=== PATIENT | female | born 1940 | race Caucasian/White ===

== ENCOUNTER → 2017-06-18 | Outpatient (CLI) | payer MEDICARE ==
--- NOTE | 2017-06-19 13:26 | MM ---
Reason for exam: screening (asymptomatic). Last mammogram was performed 1 year and 2 months ago. History: Patient is postmenopausal and has history of high-risk lesion on a previous biopsy at age 71. Family history of breast cancer in paternal aunt at age 70 and breast cancer in maternal aunt at age 60. Benign right breast needle localzation of the right breast, March 15, 2011. High risk right mammotome panel of the right breast, March 08, 2011. Benign stereotactic core biopsy of the right breast, June 10, 2002. Benign stereotactic core biopsy of the right breast, March 13, 2001. Physical Findings: A clinical breast exam by your physician is recommended on an annual basis and results should be correlated with mammographic findings. MG 3D Screening Mammo W/Cad Bilateral CC and MLO view(s) were taken. Prior study comparison: April 22, 2016, bilateral MG 3d screening mammo w/cad. March 16, 2015, bilateral MG screening mammo w CAD. There are scattered fibroglandular densities. Finding #1: There is stable architectural distortion in the outer quadrant, middle position of the right breast and benign dystrophic calcifications. Finding #2: There are typically benign round calcifications in both breasts. Previous mammotome biopsy in the right breast. There is no discrete abnormality. ASSESSMENT: Benign, BI-RAD 2 RECOMMENDATION: Routine screening mammogram of both breasts in 1 year.
== END | disposition home or self-care (01) ==
LOC: RADMAMWWP 07:13
PROVIDERS: ATTEND Internal Medicine
DX: Z12.31 Encounter for screening mammogram for malignant neoplasm of breast (principal)
CPT/HCPCS: 77063; 77067

== ENCOUNTER → 2018-07-15 | Outpatient (CLI) | payer MEDICARE ==
--- NOTE | 2018-07-17 09:37 | MM ---
Reason for exam: screening (asymptomatic). Last mammogram was performed 1 year and 1 month ago. History: Patient is postmenopausal and has history of high-risk lesion on a previous biopsy at age 71. Family history of breast cancer in paternal aunt at age 70 and breast cancer in maternal aunt at age 60. Benign right breast needle localzation of the right breast, March 15, 2011. High risk right mammotome panel of the right breast, March 08, 2011. Benign stereotactic core biopsy of the right breast, June 10, 2002. Benign stereotactic core biopsy of the right breast, March 13, 2001. Physical Findings: A clinical breast exam by your physician is recommended on an annual basis and results should be correlated with mammographic findings. MG 3D Screening Mammo W/Cad Bilateral CC and MLO view(s) were taken. Prior study comparison: June 18, 2017, bilateral MG 3d screening mammo w/cad. April 22, 2016, bilateral MG 3d screening mammo w/cad. There are scattered fibroglandular densities. Benign appearing bilateral calcifications. No suspicious abnormality. Right biopsy marker and post biopsy change noted. No significant changes when compared with prior studies. ASSESSMENT: Benign, BI-RAD 2 RECOMMENDATION: Routine screening mammogram of both breasts in 1 year.
== END | disposition home or self-care (01) ==
LOC: RADMAMWWP 14:19
PROVIDERS: ATTEND Internal Medicine
DX: Z12.31 Encounter for screening mammogram for malignant neoplasm of breast (principal)
CPT/HCPCS: 77063; 77067

== ENCOUNTER → 2019-02-08 | Outpatient (CLI) | payer MEDICARE ==
--- NOTE | 2019-02-08 13:21 | BD ---
EXAMINATION TYPE: Axial Bone Density DATE OF EXAM: 02/08/2019 COMPARISON: 2014 CLINICAL HISTORY: M 80.0 Height: Weight: FRAX RISK QUESTIONS: History of Fracture in Adulthood: YES Secondary Osteoporosis: RISK FACTORS HISTORY OF: Active: YES Postmenopausal woman: AGE 51 Take estrogen and/or progesterone medications: TOOK HRT FOR 2-3 YEARS NO LONGER Lost more than 2 inches in height since high school: YES MEDICATIONS: Additional Medications: METOPROLOL, LOSARTIN, ATORVASTIN Additional History: EXAM MEASUREMENTS: Bone mineral densitometry was performed using the 3se[employer] System. Bone mineral density as measured about the Lumbar spine is: ----- L1-L4(G/cm2): 1.350 T Score Values are as follows: ----- L2: 1.1 ----- L3: 2.8 ----- L4: 0.0 ----- L1-L4: 1.4 Bone mineral density has: INCREASED 5.2 % since study of: 2014 Bone mineral density about the R hip (g/cm2): 0.920 Bone mineral density about the L hip (g/cm2): 0.994 T Score values are as follows: -----R Neck: -0.9 -----L Neck: -0.3 -----R Total: -0.5 -----L Total: -0.1 Bone mineral density has: INCREASED 0.6 % since study of: 2014 IMPRESSION: Normal (Values between +1 and -1 indicate normal bone mass). Consider repeating this study in 5 year s or sooner if there is some new clinical indication. NOTE: T-SCORE=SD OF THE YOUNG ADULT MEAN.
== END | disposition home or self-care (01) ==
LOC: RADBDWWP 11:13
PROVIDERS: ATTEND Internal Medicine
DX: M81.0 Age-related osteoporosis without current pathological fracture (principal); M89.9 Disorder of bone, unspecified
CPT/HCPCS: 77080

== ENCOUNTER → 2020-05-10 | Outpatient (CLI) | payer MEDICARE ==
--- NOTE | 2020-05-15 11:32 | MM ---
Reason for exam: screening (asymptomatic). Last mammogram was performed 1 year and 10 months ago. History: Patient is postmenopausal and has history of high-risk lesion on a previous biopsy at age 71. Family history of breast cancer in paternal aunt at age 70 and breast cancer in maternal aunt at age 60. Benign right breast needle localzation of the right breast, March 15, 2011. High risk right mammotome panel of the right breast, March 08, 2011. Benign stereotactic core biopsy of the right breast, June 10, 2002. Benign stereotactic core biopsy of the right breast, March 13, 2001. Physical Findings: A clinical breast exam by your physician is recommended on an annual basis and results should be correlated with mammographic findings. MG 3D Screening Mammo W/Cad Bilateral CC and MLO view(s) were taken. Prior study comparison: July 15, 2018, bilateral MG 3d screening mammo w/cad. June 18, 2017, bilateral MG 3d screening mammo w/cad. There are scattered fibroglandular densities. Previous mammotome biopsy in the right breast. No significant changes when compared with prior studies. ASSESSMENT: Benign, BI-RAD 2 RECOMMENDATION: Routine screening mammogram of both breasts in 1 year.
== END | disposition home or self-care (01) ==
LOC: RADMAMWWP 16:11
PROVIDERS: ATTEND Internal Medicine
DX: Z12.31 Encounter for screening mammogram for malignant neoplasm of breast (principal)
CPT/HCPCS: 77063; 77067

== ENCOUNTER → 2021-06-11 | Outpatient (CLI) | payer MEDICARE ==
--- NOTE | 2021-06-12 10:48 | MM ---
Reason for exam: screening (asymptomatic). Last mammogram was performed 1 year and 1 month ago. History: Patient is postmenopausal and has history of high-risk lesion on a previous biopsy at age 71. Family history of breast cancer in paternal aunt at age 70 and breast cancer in maternal aunt at age 60. Benign right breast needle localzation of the right breast, March 15, 2011. High risk right mammotome panel of the right breast, March 08, 2011. Benign stereotactic core biopsy of the right breast, June 10, 2002. Benign stereotactic core biopsy of the right breast, March 13, 2001. Physical Findings: A clinical breast exam by your physician is recommended on an annual basis and results should be correlated with mammographic findings. MG 3D Screening Mammo W/Cad Bilateral CC and MLO view(s) were taken. Prior study comparison: May 10, 2020, bilateral MG 3d screening mammo w/cad. July 15, 2018, bilateral MG 3d screening mammo w/cad. There are scattered fibroglandular densities. Stable benign calcifications. No significant changes when compared with prior studies. ASSESSMENT: Benign, BI-RAD 2 RECOMMENDATION: Routine screening mammogram of both breasts in 1 year.
== END | disposition home or self-care (01) ==
LOC: RADMAMWWP 15:52
PROVIDERS: ATTEND Internal Medicine
DX: Z12.31 Encounter for screening mammogram for malignant neoplasm of breast (principal); Z78.0 Asymptomatic menopausal state; Z80.3 Family history of malignant neoplasm of breast
CPT/HCPCS: 77063; 77067

== ENCOUNTER → 2022-06-12 | Outpatient (CLI) | payer MEDICARE ==
--- NOTE | 2022-06-12 13:43 | MM ---
Reason for Exam: Screening (asymptomatic). Last mammogram was performed 1 year(s) and 1 month(s) ago. Patient History: Menarche at age 11. First Full-Term at age 20. Left ovary removed at age 33. Right ovary removed at age 33. Hysterectomy at age 33. Postmenopausal. Patient used Estrogen and Progesterone for 5 years. 03/15/2011, Benign Excisional Biopsy on the right side. 03/08/2011, High risk Core Biopsy on the right side. 06/10/2002, Benign Stereotactic Core Biopsy on the right side. 03/13/2001, Benign Stereotactic Core Biopsy on the right side. Paternal aunt had breast cancer, age 70. Maternal aunt had breast cancer, age 60. Risk Values: Arcelia 5 year model risk: 2.0%. NCI Lifetime model risk: 2.5%. Prior Study Comparison: 07/15/2018 Bilateral Screening Mammogram, [facility]. 05/10/2020 Bilateral Screening Mammogram, [facility]. 06/11/2021 Bilateral Screening Mammogram, [facility]. Tissue Density: The breast tissue is heterogeneously dense. This may lower the sensitivity of mammography. Findings: Analyzed By CAD. There is no suspicious group of microcalcifications or new suspicious mass in either breast. Overall Assessment: Negative, BI-RAD 1 Management: Screening Mammogram of both breasts in 1 year. A clinical breast exam by your physician is recommended on an annual basis and results should be correlated with mammographic findings. [facility] will attempt to contact patient to return for supplemental views and ultrasound if indicated. Electronically signed and approved by: Anshu Wadsworth DO
== END | disposition home or self-care (01) ==
LOC: RADMAMWWP 13:18
PROVIDERS: ATTEND Internal Medicine
DX: Z12.31 Encounter for screening mammogram for malignant neoplasm of breast (principal); Z78.0 Asymptomatic menopausal state; Z80.3 Family history of malignant neoplasm of breast; Z90.721 Acquired absence of ovaries, unilateral
CPT/HCPCS: 77063; 77067

== ENCOUNTER 2022-10-04 05:25 | Observation (INO) | payer MEDICARE ==
[2022-10-04] MEDS ORDERED: SODIUM CHLORIDE 0.9% 500 ML 500 ML IV STA (05:28)
[2022-10-04 06:00] LABS: Basophils # (A) 0.1 k/uL (0-0.2); Basophils % (A) 1 %; Eosinophils # (A) 0.4 k/uL (0-0.7); Eosinophils % (A) 5 %; HCT 39.5 % (34.0-46.0); HGB 13.4 gm/dL (11.4-16.0); Lymphocytes # (A) 1.9 k/uL (1.0-4.8); Lymphocytes % (A) 28 %; MCH 31.1 pg (25.0-35.0); MCHC 33.9 g/dL (31.0-37.0); MCV 91.7 fL (80.0-100.0); Mean Platelet Volume 7.6; Monocytes # (A) 0.5 k/uL (0-1.0); Monocytes % (A) 8 %; Neutrophils # (A) 3.9 k/uL (1.3-7.7); Neutrophils % (A) 56 %; Platelet Count 247 k/uL (150-450); RBC 4.31 m/uL (3.80-5.40); RDW 12.7 % (11.5-15.5); WBC 6.9 k/uL (3.8-10.6)
--- NOTE | 2022-10-04 06:06 | XR ---
EXAMINATION TYPE: XR chest 2V DATE OF EXAM: 10/04/2022 COMPARISON: NONE HISTORY: Dysrhythmia. TECHNIQUE: Frontal and lateral views of the chest are obtained. FINDINGS: Eventration of the right hemidiaphragm. There is no focal air space opacity, pleural effusi on, or pneumothorax seen. The cardiac silhouette size is upper limits of normal with atherosclerotic thoracic aorta. The osseous structures are demineralized. IMPRESSION: No acute cardiopulmonary process.
[2022-10-04 06:10] LABS: INR 0.9 (<1.2); Partial Thromboplastin Time 22.6 sec (22.0-30.0)
--- NOTE | 2022-10-04 06:10 | ED ---
General Adult HPI - General Chief complaint: Arrhythmia/Palpitations Stated complaint: TACHYCARDIA Time Seen by Provider: 10/04/22 05:28 Source: patient, EMS, RN notes reviewed, old records reviewed Mode of arrival: EMS Limitations: no limitations - History of Present Illness Initial comments: 82-year-old female presents for evaluation of palpitations and chest pain. Patient developed a left lateral chest pain which woke her from sleep. This was associated with palpitations and rapid heartbeat. She has no prior history of COPD, no history of arrhythmia. She states that intermittently over the past several weeks she's had palpitations and racing heart. Paramedics had found the patient be in A. fib with a rapid ventricular response. They did not provide us with a printed rhythm strip. No current chest pain, no vomiting, no fever, no cough - Related Data Previous Rx's Medication Instructions Recorded predniSONE 50 mg PO DAILY #5 tab 02/09/16 traMADol HCl [Ultram] 50 mg PO Q4H PRN #20 tab 02/09/16 Allergies Allergy/AdvReac Type Severity Reaction Status Date / Time acetaminophen [From [facility]] Allergy Nausea & Verified 10/04/22 05:36 Vomiting hydrocodone [From [facility]] Allergy Nausea & Verified 10/04/22 05:36 Vomiting neomycin Allergy Rash/Hives Verified 10/04/22 05:44 Review of Systems ROS Statement: Those systems with pertinent positive or pertinent negative responses have been documented in the HPI. ROS Other: All systems not noted in ROS Statement are negative. Past Medical History Past Medical History: Hypertension Additional Past Medical History / Comment(s): back pain History of Any Multi-Drug Resistant Organisms: None Reported Past Surgical History: Hysterectomy Past Psychological History: Anxiety Smoking Status: Never smoker Past Alcohol Use History: None Reported Past Drug Use History: None Reported General Exam Limitations: no limitations General appearance: alert, in no apparent distress Head exam: Present: atraumatic, normocephalic Eye exam: Present: normal appearance, PERRL ENT exam: Present: normal exam Neck exam: Present: normal inspection. Absent: tenderness, meningismus Respiratory exam: Present: normal lung sounds bilaterally. Absent: respiratory distress, wheezes Cardiovascular Exam: Present: regular rate, normal rhythm GI/Abdominal exam: Present: soft. Absent: distended, tenderness, guarding Extremities exam: Present: normal inspection, normal capillary refill Neurological exam: Present: alert, oriented X3, CN II-XII intact. Absent: motor sensory deficit Psychiatric exam: Present: anxious Skin exam: Present: warm, dry, intact Course Vital Signs 10/04/22 05:27 Pulse Rate 88 Respiratory 18 Rate Blood Pressure 185/77 O2 Sat by Pulse 100 Oximetry - Reevaluation(s) Reevaluation #1: 10/04/22 06:44 Patient reevaluated, resting comfortably, sinus rhythm without any complaints, no chest pain. Medical Decision Making - Medical Decision Making Was pt. sent in by a medical professional or institution (, PA, TILT WALL SUPERVISOR, urgent care, hospital, or shelter...) When possible be specific @ -No Did you speak to anyone other than the patient for history (EMS, parent, family, police, friend...)? What history was obtained from this source @ -No Did you review nursing and triage notes (agree or disagree)? Why? @ -I reviewed and agree with nursing and triage notes Were old charts reviewed (outside hosp., previous admission, EMS record, old EKG, old radiological studies, urgent care reports/EKG's, shelter records)? Report findings @ -No old charts were reviewed Differential Diagnosis (chest pain, altered mental status, abdominal pain women, abdominal pain men, vaginal bleeding, weakness, fever, dyspnea, syncope, headache, dizziness, GI bleed, back pain, seizure, CVA, palpatations, mental health, musculoskeletal)? @ Differential Palpitations Ventricular arrhythmias, atrial arrhythmias, myocardial infarction, anemia, thyrotoxicosis, electrolyte imbalance, hypokalemia, pulmonary embolism, pulmonary disease, drugs, alcohol, anxiety, stress.... This is not meant to be an all-inclusive list. EKG interpreted by me (3pts min.). @ -EKG: Sinus rhythm with left bundle branch block, rate of 83, WA interval 182, QRS duration 144, QTC 429, no prior EKG for comparison X-rays interpreted by me (1pt min.). @ Negative for acute cardiopulmonary findings CT interpreted by me (1pt min.). @ -None done U/S interpreted by me (1pt. min.). @ -None done What testing was considered but not performed or refused? (CT, X-rays, U/S, labs)? Why? @ -None What meds were considered but not given or refused? Why? @ -None Did you discuss the management of the patient with other professionals (professionals i.e. , PA, TILT WALL SUPERVISOR, lab, RT, psych nurse, social director, marketing manager, teacher, human resource officer, watch case polisher)? Give summary @ -Dr. Iraheta Was smoking cessation discussed for >3mins.? @ -No Was critical care preformed (if so, how long)? @ -No Were there social determinants of health that impacted care today? How? (Homelessness, low income, unemployed, alcoholism, drug addiction, transportation, low edu. Level, literacy, decrease access to med. care, fci, rehab)? @ -No Was there de-escalation of care discussed even if they declined (Discuss DNR or withdrawal of care, Hospice)? DNR status @ -No What co-morbidities impacted this encounter? (DM, HTN, Smoking, COPD, CAD, Cancer, CVA, ARF, Chemo, Hep., AIDS, mental health diagnosis, sleep apnea, morbid obesity)? @ -Hypertension Was patient admitted / discharged? Hospital course, mention meds given and route, prescriptions, significant lab abnormalities, going to OR and other pertinent info. @ -82-year-old female with palpitations and an episode of chest pain. Dary espitia had reported a rhythm on the monitor that was suggestive of A. fib with RVR but did not provide this documentation for my review. She is in sinus rhythm with a left bundle branch block, no old EKG for comparison. No chest pain at the time my evaluation. Her x-ray is unremarkable. She has normal CBC, normal CMP, negative initial troponin. She will benefit from an observation period on telemetry and serial cardiac enzymes as well as cardiology consultation. Undiagnosed new problem with uncertain prognosis? @ -No Drug Therapy requiring intensive monitoring for toxicity (Heparin, Nitro, Insulin, Cardizem)? @ -No Were any procedures done? @ -No Diagnosis/symptom? @ -Chest pain, palpitation Acute, or Chronic, or Acute on Chronic? @ -Acute Uncomplicated (without systemic symptoms) or Complicated (systemic symptoms)? @ -default Side effects of treatment? @ -No Exacerbation, Progression, or Severe Exacerbation? @ -No Poses a threat to life or bodily function? How? (Chest pain, USA, GA, pneumonia, PE, COPD, DKA, ARF, appy, cholecystitis, CVA, Diverticulitis, Homicidal, Suicidal, threat to staff... and all critical care pts) @ -Yes, chest pain, possible arrhythmia - Lab Data Result diagrams: 10/04/22 05:45 10/04/22 05:45 Lab Results 10/04/22 10/04/22 10/04/22 Range/Units 05:45 05:45 05:45 WBC 6.9 (3.8-10.6) k/uL RBC 4.31 (3.80-5.40) m/uL Hgb 13.4 (11.4-16.0) gm/dL Hct 39.5 (34.0-46.0) % MCV 91.7 (80.0-100.0) fL MCH 31.1 (25.0-35.0) pg MCHC 33.9 (31.0-37.0) g/dL RDW 12.7 (11.5-15.5) % Plt Count 247 (150-450) k/uL MPV 7.6 Neutrophils % 56 % Lymphocytes % 28 % Monocytes % 8 % Eosinophils % 5 % Basophils % 1 % Neutrophils # 3.9 (1.3-7.7) k/uL Lymphocytes # 1.9 (1.0-4.8) k/uL Monocytes # 0.5 (0-1.0) k/uL Eosinophils # 0.4 (0-0.7) k/uL Basophils # 0.1 (0-0.2) k/uL PT 10.0 (9.0-12.0) sec INR 0.9 (<1.2) APTT 22.6 (22.0-30.0) sec Sodium 139 (137-145) mmol/L Potassium 3.3 L (3.5-5.1) mmol/L Chloride 105 (98-107) mmol/L Carbon Dioxide 25 (22-30) mmol/L Anion Gap 9 mmol/L BUN 26 H (7-17) mg/dL Creatinine 0.96 (0.52-1.04) mg/dL Est GFR (CKD-EPI)AfAm 63 (>60 ml/min/1.73 sqM) Est GFR (CKD-EPI)NonAf 55 (>60 ml/min/1.73 sqM) Glucose 115 H (74-99) mg/dL Calcium 8.8 (8.4-10.2) mg/dL Magnesium 1.9 (1.6-2.3) mg/dL Total Bilirubin 0.4 (0.2-1.3) mg/dL AST 25 (14-36) U/L ALT 21 (4-34) U/L Alkaline Phosphatase 49 (38-126) U/L Troponin I (0.000-0.034) ng/mL Total Protein 6.6 (6.3-8.2) g/dL Albumin 3.9 (3.5-5.0) g/dL 10/04/22 Range/Units 05:45 WBC (3.8-10.6) k/uL RBC (3.80-5.40) m/uL Hgb (11.4-16.0) gm/dL Hct (34.0-46.0) % MCV (80.0-100.0) fL MCH (25.0-35.0) pg MCHC (31.0-37.0) g/dL RDW (11.5-15.5) % Plt Count (150-450) k/uL MPV Neutrophils % % Lymphocytes % % Monocytes % % Eosinophils % % Basophils % % Neutrophils # (1.3-7.7) k/uL Lymphocytes # (1.0-4.8) k/uL Monocytes # (0-1.0) k/uL Eosinophils # (0-0.7) k/uL Basophils # (0-0.2) k/uL PT (9.0-12.0) sec INR (<1.2) APTT (22.0-30.0) sec Sodium (137-145) mmol/L Potassium (3.5-5.1) mmol/L Chloride (98-107) mmol/L Carbon Dioxide (22-30) mmol/L Anion Gap mmol/L BUN (7-17) mg/dL Creatinine (0.52-1.04) mg/dL Est GFR (CKD-EPI)AfAm (>60 ml/min/1.73 sqM) Est GFR (CKD-EPI)NonAf (>60 ml/min/1.73 sqM) Glucose (74-99) mg/dL Calcium (8.4-10.2) mg/dL Magnesium (1.6-2.3) mg/dL Total Bilirubin (0.2-1.3) mg/dL AST (14-36) U/L ALT (4-34) U/L Alkaline Phosphatase (38-126) U/L Troponin I <0.012 (0.000-0.034) ng/mL Total Protein (6.3-8.2) g/dL Albumin (3.5-5.0) g/dL Disposition Clinical Impression: Palpitations, Chest pain Disposition: ADMITTED IP TO THIS HOSP Condition: Stable Is patient prescribed a controlled substance at d/c from ED?: No Referrals: Brenda Iraheta MD [Primary Care Provider] - 1-2 days Time of Disposition: 06:46
[2022-10-04 06:14] LABS: Albumin 3.9 g/dL (3.5-5.0); Calcium 8.8 mg/dL (8.4-10.2); Magnesium 1.9 mg/dL (1.6-2.3); Potassium 3.3 mmol/L (3.5-5.1); Total Bilirubin 0.4 mg/dL (0.2-1.3); Total Protein 6.6 g/dL (6.3-8.2)
[2022-10-04] MEDS ORDERED: POTASSIUM CHLORIDE ER 20 MEQ TAB.ER PO STA (06:16)
[2022-10-04] MEDS ORDERED: ASPIRIN 325 MG TAB PO STA (06:40)
[2022-10-04] MEDS ORDERED: NALOXONE 0.4 MG/ML 1 ML VIAL IV PRN (06:41)
[2022-10-04 07:05] LABS: Appearance,Urine Clear (Clear); Bacteria,Urine Moderate /hpf; Bilirubin,Urine Negative (Negative); Blood,Urine Negative (Negative); Color,Urine Light Yellow; Glucose,Urine (UA) Negative (Negative); Ketones,Urine Negative (Negative); Leukocyte Esterase,Urine Trace (Negative); Nitrite,Urine Negative (Negative); PH, Urine 6.5 (5.0-8.0); Protein,Urine Negative (Negative); RBC,Urine <1 /hpf (0-5); Specific Gravity,Urine 1.007 (1.001-1.035); Squamous Epithelial Cell,Urine 1 /hpf (0-4); Urobilinogen,Urine <2.0 mg/dL (<2.0); WBC,Urine 6 /hpf (0-5)
[2022-10-04] MEDS ORDERED: METOPROLOL TARTRATE 50 MG TAB PO SCH (09:00)
--- NOTE | 2022-10-04 09:47 | P.HPIM ---
History of Present Illness H&P Date: 10/04/22 Chief Complaint: Chest pain and palpitations This is a 82-year-old female patient who presented with concerns of intermittent chest pain and palpitations. Patient reports palpitations have been occurring over the past 2 months usually early in the morning. Patient states that chest pain was Started this morning but resolved on arrival to ER. Patient has past medical history of hypertension and anxiety. According to EMS records patient was found to be in A. fib with RVR but was unable to provide with printed rhythm strip. EKG not upon arrival showed sinus rhythm with left bundle branch block. Chest x-ray completed showing no acute cardiopulmonary process. TSH level 2.090. Troponins negative. Patient slightly hypokalemic with potassium level 3.3. At this time 2-D echo has been ordered repeat labs ordered cardiology service is consulted. UA showing trace amount leukocyte esterase. Patient denies any acute symptoms will order urine culture at this time. This time patient is resting comfortably bed complaints of slight shakiness. Denies chest pain or palpitations. Denies nausea vomiting or diarrhea. Denies any urinary burning or frequency Review of Systems Please refer to HPI otherwise unremarkable Past Medical History Past Medical History: Hypertension Additional Past Medical History / Comment(s): back pain History of Any Multi-Drug Resistant Organisms: None Reported Past Surgical History: Hysterectomy Past Psychological History: Anxiety Smoking Status: Never smoker Past Alcohol Use History: None Reported Past Drug Use History: None Reported Medications and Allergies Home Medications Medication Instructions Recorded Confirmed Type ALPRAZolam [Xanax] 0.25 mg PO BID PRN 10/04/22 10/04/22 History Atorvastatin [Lipitor] 20 mg PO HS 10/04/22 10/04/22 History Losartan Potassium [Cozaar] 100 mg PO HS 10/04/22 10/04/22 History Metoprolol/Hydrochlorothiazide 1 tab PO DAILY 10/04/22 10/04/22 History [Lopressor Hct 50-25 mg Tab] Omeprazole [PriLOSEC] 20 mg PO DAILY 10/04/22 10/04/22 History Allergies Allergy/AdvReac Type Severity Reaction Status Date / Time acetaminophen [From [facility]] Allergy Nausea & Verified 10/04/22 08:18 Vomiting hydrocodone [From [facility]] Allergy Nausea & Verified 10/04/22 08:18 Vomiting neomycin Allergy Rash/Hives Verified 10/04/22 08:18 Physical Exam Vitals: Vital Signs Temp Pulse Resp BP Pulse Ox 10/04/22 08:29 97.8 F 91 18 123/53 99 10/04/22 06:50 105 H 20 99 10/04/22 06:40 106 H 19 136/72 99 10/04/22 06:30 98 99 10/04/22 06:20 82 8 L 100 10/04/22 06:10 92 16 158/62 98 10/04/22 05:50 96 98 10/04/22 05:40 90 14 185/77 99 10/04/22 05:30 105 H 14 99 10/04/22 05:29 99 177/85 100 10/04/22 05:27 88 18 185/77 100 Intake and Output 10/03/22 10/04/22 10/04/22 22:59 06:59 14:59 Other: Weight 78.925 kg Head normocephalic Neck supple Lungs clear to auscultation bilaterally no wheezing or crackles Heart regular rate and rhythm S1-S2, no rub or gallop Abdomen is soft nontender nondistended positive bowel sounds no hepatosplenomegaly Extremities no edema Neuro alert and orientated to 3 Results CBC & Chem 7: 10/04/22 05:45 10/04/22 05:45 Labs: Abnormal Lab Results - Last 24 Hours (Table) 10/04/22 10/04/22 Range/Units 05:45 06:51 Potassium 3.3 L (3.5-5.1) mmol/L BUN 26 H (7-17) mg/dL Glucose 115 H (74-99) mg/dL Ur Leukocyte Esterase Trace H (Negative) Urine WBC 6 H (0-5) /hpf Urine Bacteria Moderate H (None) /hpf Assessment and Plan Assessment: 1. Chest pain with palpitations 2. Possible atrial fibrillation per paramedics in EMS. 3. History of essential hypertension 4. History of anxiety 5. Hypokalemia. Potassium replaced per protocol. Repeat lab order Cardiology services consulted Continue telemetry 2-D echo ordered Repeat labs ordered Carotid Doppler ordered Time with Patient: Greater than 30 (Greater than 60% of the total time spent in counseling and coordination of care)
[2022-10-04] MEDS: ALPRAZolam 0.25 MG TAB PO PRN ×2 (10:22→19:07)
[2022-10-04] MEDS: hydroCHLOROthiazide 25 MG TAB PO SCH (10:22)
[2022-10-04] MEDS: PANTOPRAZOLE 40 MG TABLET PO SCH (10:22)
[2022-10-04] MEDS ORDERED: ACETAMINOPHEN TAB 325 MG TAB PO PRN (11:31)
--- NOTE | 2022-10-04 14:25 | US ---
EXAMINATION TYPE: US carotid duplex BILAT DATE OF EXAM: 10/04/2022 COMPARISON: NONE CLINICAL INDICATION: Female, 82 years old with history of dizziness; Dizzy, no h/o dvt TECHNIQUE: Carotid duplex ultrasound examination. Indirect Doppler criteria was utilized. FINDINGS: EXAM MEASUREMENTS: RIGHT: Peak Systolic Velocity (PSV) cm/sec ----- Right CCA: 67.3 ----- Right ICA: 247.0 ----- Right ECA: 106.9 ICA/CCA ratio: 3.7 RIGHT: End Diastole cm/sec ----- Right CCA: 10.4 ----- Right ICA: 70.4 ----- Right ECA: 6.9 LEFT: Peak Systolic Velocity (PSV) cm/sec ----- Left CCA: 75.3 ----- Left ICA: 143.2 ----- Left ECA: 70.3 ICA/CCA ratio: 1.9 LEFT: End Diastole cm/sec ----- Left CCA: 16.8 ----- Left ICA: 42.3 ----- Left ECA: 12.7 VERTEBRALS (direction of flow): Right Vertebral: Antegrade Left Vertebral: Antegrade Rhythm: Normal CHECK WEIGHER NOTES: diving bilateral ICA's, right distal ICA had increased velocities, heterogeneous p laque at left bulb IMPRESSION: Suboptimal study. Abnormal velocities measurements bilaterally more prominent on the rig ht. Abnormal right-sided ratio. Hemodynamically significant stenosis greater than 50% cannot be exclu ded. Advise CTA of the neck follow-up to further evaluate. Criteria for Assigning % of Stenosis / Diameter reduction (Estimation based on the indirect measurements of the internal carotid artery velocities (ICA PSV). 1. Normal (no stenosis)=ICA PSV < 125 cm/s: ratio < 2.0: ICA EDV<40 cm/s. 2. Less than 50% stenosis=ICA PSV < 125 cm/s: ratio < 2.0: ICA EDV<40 cm/s. 3. 50 to 69% stenosis=ICA PSV of 125 to 230 cm/s: ration 2.0 ? 4.0: ICA EDV 40-100 cm/s. 4. Greater than 70% stenosis to near occlusion= ICA PSV > 230 cm/s: ratio > 4.0: ICA EDV > 100 cm/s. 5. Near occlusion= ICA PSV velocities may be low or undetectable: variable ratio and ICA EDV. 6. Total occlusion=unable to detect flow.
[2022-10-04] MEDS: IBUPROFEN 600 MG TAB PO PRN (19:09)
[2022-10-04] MEDS: ATORVASTATIN 20 MG TAB PO SCH (21:27)
[2022-10-04] MEDS: LOSARTAN 50 MG TAB PO SCH (21:27)
[2022-10-05] MEDS: ALPRAZolam 0.25 MG TAB PO PRN ×2 (04:19→20:12)
[2022-10-05] MEDS: IBUPROFEN 600 MG TAB PO PRN ×2 (04:19→20:12)
[2022-10-05] MEDS: hydroCHLOROthiazide 25 MG TAB PO SCH (08:29)
[2022-10-05] MEDS: PANTOPRAZOLE 40 MG TABLET PO SCH (08:30)
[2022-10-05] MEDS: METOPROLOL TARTRATE 50 MG TAB PO SCH ×2 (08:30→20:09)
[2022-10-05 10:08] LABS: Albumin 3.5 g/dL (3.8-4.9); Albumin/Globulin Ratio 1.75 (1.60-3.17); Anion Gap 9.1 mmol/L (10.00-18.00); BUN/Creat Ratio 20.63 Ratio (12.00-20.00); Blood Urea Nitrogen 16.5 mg/dL (9.0-27.0); Calcium 8.9 mg/dL (8.7-10.3); Carbon Dioxide 23.9 mmol/L (20.0-27.5); Non-African American GFR(CKD) 68.2 (60.0-200.0); Potassium 4.1 mmol/L (3.5-5.5); Total Bilirubin 0.5 mg/dL (0.30-1.20); Total Protein 5.5 g/dL (6.2-8.2)
[2022-10-05 10:22] LABS: Basophils # (A) 0.05 X 10*3/uL (0.00-0.10); Basophils % (A) 0.8 %; Eosinophils # (A) 0.36 X 10*3/uL (0.04-0.35); Eosinophils % (A) 5.7 %; HCT 37.9 % (37.2-46.3); HGB 12.5 g/dL (12.0-15.0); Immature Grans, Automated 0.5 %; Lymphocytes # (A) 1.86 X 10*3/uL (0.90-5.00); Lymphocytes % (A) 29.7 %; MCH 30.6 pg (27.0-32.0); MCV 92.7 fL (80.0-97.0); Mean Platelet Volume 10.2 fL (9.5-12.2); Monocytes % (A) 11.2 %; NRBC Per 100 WBC 0 /100 WBCS (0.0-0.0); Neutrophils # (A) 3.27 X 10*3/uL (1.80-7.70); Neutrophils % (A) 52.1 %; Platelet Count 238 X 10*3/uL (140-440); RBC 4.09 X 10*6/uL (4.10-5.20); RDW 12.9 % (11.5-14.5); WBC 6.27 X 10*3/uL (4.50-10.00)
--- NOTE | 2022-10-05 12:24 | P.PN ---
Subjective Progress Note Date: 10/05/22 Glenys Young, is a 82-year-old female patient who presented with concerns of intermittent chest pain and palpitations. Patient reports palpitations have been occurring over the past 2 months usually early in the morning. Patient states that chest pain was Started this morning but resolved on arrival to ER. Patient has past medical history of hypertension and anxiety. According to EMS records patient was found to be in A. fib with RVR but was unable to provide with printed rhythm strip. EKG not upon arrival showed sinus rhythm with left bundle branch block. Chest x-ray completed showing no acute cardiopulmonary process. TSH level 2.090. Troponins negative. Patient slightly hypokalemic with potassium level 3.3. At this time 2-D echo has been ordered repeat labs ordered cardiology service is consulted. UA showing trace amount leukocyte esterase. Patient denies any acute symptoms will order urine culture at this time. This time patient is resting comfortably bed complaints of slight shakiness. Denies chest pain or palpitations. Denies nausea vomiting or diarrhea. Denies any urinary burning or frequency On 10/05/2022 patient was seen and examined on the telemetry floor, she is alert and oriented 3 in no apparent distress, she is still having episodes of palpitation and chest discomfort, otherwise she denies any complaints there is no fever or chills no headache or dizziness, no shortness of breath no cough no nausea or vomiting no abdominal pain no diarrhea no blood in the stools no burning with urination no frequency or urgency and no hematuria. Patient had an echocardiogram, and she was seen by cardiology. However cardiology consult and echocardiogram results are not available to me yet. I will continue to follow closely. Objective - Vital Signs Vital signs: Vital Signs Temp 99 F 10/05/22 07:00 Pulse 92 10/05/22 07:00 Resp 16 10/05/22 07:00 BP 148/84 10/05/22 07:00 Pulse Ox 99 10/05/22 07:59 FiO2 Intake & Output 10/04/22 10/05/22 10/05/22 18:59 06:59 18:59 Intake Total 118 240 Balance 118 240 Weight 78.925 kg Intake: Oral 118 240 Other: Voiding Method Toilet Toilet Toilet # Voids 3 - Exam In general patient is alert and oriented x 3 in no distress HEENT head normocephalic and atraumatic Neck is supple no JVD no goiter no lymphadenopathy no carotid bruit Chest examination is clear to auscultation no crackles no wheezing Cardiac exam reveals regular heart sounds S1 and S2 no gallops no murmurs Abdomen is soft nontender no organomegaly with normal bowel sounds Extremity exam reveals no edema no cyanosis or clubbing Neurological examination reveals no gross focal deficits - Labs CBC & Chem 7: 10/05/22 06:19 10/05/22 06:19 Labs: Abnormal Lab Results - Last 24 Hours (Table) 10/05/22 10/05/22 Range/Units 06:19 06:19 RBC 4.09 L (4.10-5.20) X 10*6/uL Eosinophils # 0.36 H (0.04-0.35) X 10*3/uL Anion Gap 9.10 L (10.00-18.00) mmol/L BUN/Creatinine Ratio 20.63 H (12.00-20.00) Ratio Alkaline Phosphatase 38 L (41-126) U/L Total Protein 5.5 L (6.2-8.2) g/dL Albumin 3.5 L (3.8-4.9) g/dL Assessment and Plan Assessment: 1. Chest pain with palpitations 2. Possible atrial fibrillation per paramedics in EMS. 3. History of essential hypertension 4. History of anxiety 5. Hypokalemia. Potassium replaced per protocol. Repeat lab order Cardiology services consulted Continue telemetry 2-D echo ordered Repeat labs ordered Carotid Doppler ordered
--- NOTE | 2022-10-05 12:34 | P.CRDCN ---
History of Present Illness Consult date: 10/05/22 Consult reason: chest pain History of present illness: This is Rolando Busby NP, I'm dictating on behalf of Dr. Matthew's H&P and A&P The patient was interviewed and examined. HPI: Patient is a pleasant 82 old female presented to hospital with complaints of chest pain heart palpitations, and shortness of breath. Patient reports that she's been having periodic episodes of shortness of breath, weakness, heart fluttering, as well as dizziness. Patient states yesterday she had some chest pain 2, which is a prompted her to present to the emergency department. Emergency department notes report that EMS stated the patient had a episode of atrial fibrillation while on the way to the hospital, however no telemetry strips or EKG was completed to demonstrate this. In the emergency department the patient was found to be normal sinus rhythm with a left bundle branch block. Initial troponin was negative. Due to the significant is the patient's symptoms she was admitted for further evaluation. This morning patient reports that she's feeling okay. She is denying chest pain, shortness of breath, heart palpitations, weakness, and dizziness at this time. Patient did have an echocardiogram completed which is pending read. Patient is a past medical history significant for hypertension. ROS: [No fever, chills, or rigors] [no cough, phlegm, or expectoration] [no nausea, vomiting, or diarrhea] [no hematuria, dysuria] [no musculoskelatal complaints] [no strokes or seizures] [no skin lesions] EXAMINATION: GENERAL: Well-appearing, well-nourished and in no acute distress. NECK: Supple without JVD or thyromegaly. LUNGS: Breath sounds clear to auscultation bilaterally. Respiration equal and unlabored. No wheezes, rales or rhonchi. HEART: Regular rate and rhythm without murmurs, rubs or gallops. S1 and S2 heard. EXTREMITIES: Normal range of motion, no edema. No clubbing or cyanosis. Peripheral pulses intact and strong. REVIEW OF LABS, ECG & MEDICAL DATA: LABS: White count 6.2, hemoglobin 12.5, platelets 238, sodium 142, potassium 4.1, B1 16.5, creatinine 0.8, calcium 8.9, troponin less than 0.0123, TSH 2.0 EKG: Normal sinus rhythm with left bundle branch block IMAGING: Chest x-ray dated 10/04/2022 demonstrates no acute cardiopulmonary process. Carotid Doppler dated 10/04/2022 demonstrates suboptimal study, abn ormal velocities measurements bilaterally more prominent on the right, abnormal right-sided ratio, hemodynamically significant stenosis greater than 50% cannot be excluded, advised CTA of the neck follow-up to evaluate further. VITALS: Temp 99, pulse 92, respirations 16, blood pressure 148/84, O2 saturation 98% on room air IMPRESSION: 1. Possible paroxysmal atrial fibrillation, no EKG evidence yet 2. Hypertension, patient on hydrochlorothiazide and losartan PLAN: Increase metoprolol to 50 mg twice a day. Echocardiogram is pending read. Monitor patient overnight on telemetry. Further recommendations based on patient's clinical course. Thank you for the consult and allowing us to participate in the care of this patient. Past Medical History Past Medical History: Hypertension Additional Past Medical History / Comment(s): back pain History of Any Multi-Drug Resistant Organisms: None Reported Past Surgical History: Bowel Resection, Hysterectomy Past Anesthesia/Blood Transfusion Reactions: No Reported Reaction Past Psychological History: Anxiety Smoking Status: Never smoker Past Alcohol Use History: None Reported Past Drug Use History: None Reported Medications and Allergies Home Medications Medication Instructions Recorded Confirmed Type ALPRAZolam [Xanax] 0.25 mg PO BID PRN 10/04/22 10/04/22 History Atorvastatin [Lipitor] 20 mg PO HS 10/04/22 10/04/22 History Losartan Potassium [Cozaar] 100 mg PO HS 10/04/22 10/04/22 History Metoprolol/Hydrochlorothiazide 1 tab PO DAILY 10/04/22 10/04/22 History [Lopressor Hct 50-25 mg Tab] Omeprazole [PriLOSEC] 20 mg PO DAILY 10/04/22 10/04/22 History Allergies Allergy/AdvReac Type Severity Reaction Status Date / Time acetaminophen [From [place]] Allergy Nausea & Verified 10/04/22 08:18 Vomiting hydrocodone [From [place]] Allergy Nausea & Verified 10/04/22 08:18 Vomiting neomycin Allergy Rash/Hives Verified 10/04/22 08:18 Physical Exam Vitals: Vital Signs Temp Pulse Resp BP Pulse Ox 10/05/22 07:59 99 10/05/22 07:00 99 F 92 16 148/84 98 10/05/22 02:40 97.9 F 85 15 136/77 98 10/04/22 20:00 98 F 81 17 177/83 98 10/04/22 14:54 98.1 F 87 18 103/67 98 10/04/22 14:00 16 Intake and Output 10/04/22 10/05/22 10/05/22 22:59 06:59 14:59 Intake Total 118 240 Balance 118 240 Intake: Oral 118 240 Other: Voiding Method Toilet Toilet # Voids 3 Results 10/05/22 06:19 10/05/22 06:19 Cardiac Enzymes 10/04/22 10/05/22 Range/Units 11:43 06:19 AST 17 (13-35) U/L Troponin I <0.012 (0.000-0.034) ng/mL CBC 10/05/22 Range/Units 06:19 WBC 6.27 (4.50-10.00) X 10*3/uL RBC 4.09 L (4.10-5.20) X 10*6/uL Hgb 12.5 (12.0-15.0) g/dL Hct 37.9 (37.2-46.3) % Plt Count 238 (140-440) X 10*3/uL Comprehensive Metabolic Panel 10/05/22 Range/Units 06:19 Sodium 142 (135-145) mmol/L Potassium 4.1 (3.5-5.5) mmol/L Chloride 109 (96-109) mmol/L Carbon Dioxide 23.9 (20.0-27.5) mmol/L BUN 16.5 (9.0-27.0) mg/dL Creatinine 0.8 (0.6-1.5) mg/dL Glucose 100 (70-110) mg/dL Calcium 8.9 (8.7-10.3) mg/dL AST 17 (13-35) U/L ALT 16 (8-44) U/L Alkaline Phosphatase 38 L (41-126) U/L Total Protein 5.5 L (6.2-8.2) g/dL Albumin 3.5 L (3.8-4.9) g/dL Current Medications Generic Name Dose Route Start Last Admin Trade Name Freq PRN Reason Stop Dose Admin Acetaminophen 650 mg 10/04/22 11:31 Acetaminophen Tab 325 Mg Tab PO Q6HR PRN Fever and/ or Pain Alprazolam 0.25 mg 10/05/22 12:24 Alprazolam 0.25 Mg Tab PO QID PRN Anxiety Atorvastatin Calcium 20 mg 10/04/22 21:00 10/04/22 21:27 Atorvastatin 20 Mg Tab PO 20 mg HS ARTHUR Administration Hydrochlorothiazide 25 mg 10/04/22 09:00 10/05/22 08:29 Hydrochlorothiazide 25 Mg Tab PO Not Given DAILY ARTHUR Ibuprofen 600 mg 10/04/22 17:55 10/05/22 04:19 Ibuprofen 600 Mg Tab PO 600 mg Q6H PRN Administration Pain Losartan Potassium 100 mg 10/04/22 21:00 10/04/22 21:27 Losartan 50 Mg Tab PO 100 mg HS ARTHUR Administration Metoprolol Tartrate 50 mg 10/05/22 09:00 10/05/22 08:30 Metoprolol Tartrate 50 Mg Tab PO 50 mg BID ARTHUR Administration Naloxone HCl 0.2 mg 10/04/22 06:41 Naloxone 0.4 Mg/Ml 1 Ml Vial IV Q2M PRN Opioid Reversal Pantoprazole Sodium 40 mg 10/04/22 09:00 10/05/22 08:30 Pantoprazole 40 Mg Tablet PO 40 mg DAILY@0730 ARTHUR Administration Intake and Output 10/04/22 10/05/22 10/05/22 22:59 06:59 14:59 Intake Total 118 240 Balance 118 240 Intake: Oral 118 240 Other: Voiding Method Toilet Toilet # Voids 3 10/05/22 06:19 10/05/22 06:19
--- NOTE | 2022-10-05 17:43 | CA ---
Transthoracic Echo Report Name: Glenys Young Age: 82 Gender: F : 1940 Exam Date: 10/04/2022 14:23 Exam Location: [facility] Ht (in): 62 Wt (lb): 174 Ordering Physician: Brenda Iraheta MD Attending/Referring Phys: [employer] Ashley Delgado RDCS Procedure CPT: Indications: Chest Pain Cardiac Hx: Technical Quality: Good Contrast 1: Total Dose (mL): Contrast 2: Total Dose (mL): MEASUREMENTS (Male / Female) Normal Values 2D ECHO LV Diastolic Diameter PLAX 4.7 cm 4.2 - 5.9 / 3.9 - 5.3 cm LV Systolic Diameter PLAX 3.2 cm IVS Diastolic Thickness 1.0 cm 0.6 - 1.0 / 0.6 - 0.9 cm LVPW Diastolic Thickness 1.0 cm 0.6 - 1.0 / 0.6 - 0.9 cm LV Relative Wall Thickness 0.4 RV Internal Dim ED PLAX 3.4 cm LA Systolic Diameter LX 3.9 cm 3.0 - 4.0 / 2.7 - 3.8 cm LV Diastolic Volume MOD 4C 61.5 cm??? LV Systolic Volume MOD 4C 32.0 cm??? LV Ejection Fraction MOD 4C 48.0 % LV Diastolic Length 4C 7.2 cm LV Systolic Length 4C 6.2 cm LV Diastolic Volume MOD 2C 74.8 cm??? LV Systolic Volume MOD 2C 43.4 cm??? LV Ejection Fraction MOD 2C 41.9 % LV Diastolic Length 2C 8.2 cm LV Systolic Length 2C 6.5 cm LA Volume 48.7 cm??? 18 - 58 / 22 - 52 cm??? M-MODE Aortic Root Diameter MM 3.0 cm AV Cusp Separation MM 2.4 cm DOPPLER AV Peak Velocity 118.1 cm/s AV Peak Gradient 5.6 mmHg AI Peak Velocity 260.9 cm/s AI Peak Gradient 27.2 mmHg AI Pressure Half Time 1122.1 ms MV Area PHT 3.6 cm??? Mitral E Point Velocity 97.7 cm/s Mitral A Point Velocity 97.1 cm/s Mitral E to A Ratio 1.0 MV Deceleration Time 212.4 ms TR Peak Velocity 278.4 cm/s TR Peak Gradient 31.0 mmHg Right Ventricular Systolic Press 36.0 mmHg FINDINGS Left Ventricle Left ventricular ejection fraction is estimated at 50-55 %. Left ventricular cavity size normal. Mildly increased septal wall thickness. Mildly increased posterior wall thickness. Right Ventricle Mild right ventricular dilatation. Mild pulmonary hypertension. Right Atrium Normal right atrial size. Left Atrium Mildly increased left atrial diameter. Mitral Valve Structurally normal mitral valve. No evidence for mitral valve prolapse. No mitral stenosis. Mild mitral regurgitation. Aortic Valve Trileaflet aortic valve. No aortic stenosis. Mild aortic regurgitation. Tricuspid Valve Structurally normal tricuspid valve. Mild tricuspid regurgitation. Pulmonic Valve Pulmonic valve not well visualized. Pericardium Normal pericardium. No pericardial effusion. Aorta Normal size aortic root and proximal ascending aorta. CONCLUSIONS LVH with preserved systolic function Mildly enlarged right ventricle Previewed by: Dr. Don Matthew MD (Electronically Signed) Final Date: 05 Oct 2022 17:42
[2022-10-05] MEDS: LOSARTAN 50 MG TAB PO SCH (20:10)
[2022-10-05] MEDS: ATORVASTATIN 20 MG TAB PO SCH (20:10)
[2022-10-06] MEDS: ALPRAZolam 0.25 MG TAB PO PRN ×2 (02:39→09:41)
[2022-10-06] MEDS: IBUPROFEN 600 MG TAB PO PRN ×2 (02:39→09:41)
[2022-10-06 08:37] VITALS: PULSE 71; RESP 16; TEMP 97.9
[2022-10-06] MEDS ORDERED: LOSARTAN 50 MG TAB PO SCH ×2 (09:00→21:00)
[2022-10-06 09:38] VITALS: BP 140/80
[2022-10-06] MEDS: METOPROLOL TARTRATE 50 MG TAB PO SCH (09:39)
[2022-10-06] MEDS: hydroCHLOROthiazide 25 MG TAB PO SCH (09:39)
[2022-10-06] MEDS: PANTOPRAZOLE 40 MG TABLET PO SCH (09:39)
--- NOTE | 2022-10-06 10:06 | P.DS ---
Providers Date of admission: 10/04/22 06:41 Expected date of discharge: 10/06/22 Attending physician: Brenda Iraheta Consults: 10/04/22 06:41 Consult Physician Routine Consulting Provider: Barbara Yang Consult Reason/Comments: Chest pain, possible A. fib Do you want consulting provider notified?: Yes Primary care physician: Brenda Iraheta [facility] Course: Discharge diagnosis 1. Chest pain with palpitations 2. Possible atrial fibrillation per paramedics in EMS. 3. History of essential hypertension 4. History of anxiety 5. Hypokalemia. Potassium replaced per protocol. Repeat lab order Hospital course Glenys Young, is a 82-year-old female patient who presented with concerns of intermittent chest pain and palpitations. Patient reports palpitations have been occurring over the past 2 months usually early in the morning. Patient states that chest pain was Started this morning but resolved on arrival to ER. Patient has past medical history of hypertension and anxiety. According to EMS records patient was found to be in A. fib with RVR but was unable to provide with printed rhythm strip. EKG not upon arrival showed sinus rhythm with left bundle branch block. Chest x-ray completed showing no acute cardiopulmonary process. TSH level 2.090. Troponins negative. Patient slightly hypokalemic with potassium level 3.3. At this time 2-D echo has been ordered repeat labs ordered cardiology service is consulted. UA showing trace amount leukocyte esterase. Patient denies any acute symptoms will order urine culture at this time. This time patient is resting comfortably bed complaints of slight shakiness. Denies chest pain or palpitations. Denies nausea vomiting or diarrhea. Denies any urinary burning or frequency On 10/05/2022 patient was seen and examined on the telemetry floor, she is alert and oriented 3 in no apparent distress, she is still having episodes of palpitation and chest discomfort, otherwise she denies any complaints there is no fever or chills no headache or dizziness, no shortness of breath no cough no nausea or vomiting no abdominal pain no diarrhea no blood in the stools no burning with urination no frequency or urgency and no hematuria. Patient had an echocardiogram, and she was seen by cardiology. However cardiology consult and echocardiogram results are not available to me yet. I will continue to follow closely. On 10/06/2022 patient is alert and oriented 3 discussed case with cardiology nurse practitioner patient has been cleared for discharge very per cardiologyof A. fib. Losartan dose increased per cardiology patient to follow-up outpatient with cardiology service for about monitor patient states understanding. At this time patient denies chest pain or shortness of breath. Patient denies nausea vomiting or diarrhea. Patient denies any urinary burning or frequency. Patient Condition at Discharge: Stable Plan - Discharge Summary Discharge Rx Participant: Yes New Discharge Prescriptions: New Losartan [Cozaar] 50 mg PO HS 30 Days #30 tab Losartan [Cozaar] 100 mg PO DAILY 30 Days #30 tab Continue ALPRAZolam [Xanax] 0.25 mg PO BID PRN PRN Reason: Anxiety Metoprolol/Hydrochlorothiazide [Lopressor Hct 50-25 mg Tab] 1 tab PO DAILY Omeprazole [PriLOSEC] 20 mg PO DAILY Atorvastatin [Lipitor] 20 mg PO HS Discontinued Losartan Potassium [Cozaar] 100 mg PO HS Discharge Medication List ALPRAZolam [Xanax] 0.25 mg PO BID PRN 10/04/22 [History] Atorvastatin [Lipitor] 20 mg PO HS 10/04/22 [History] Metoprolol/Hydrochlorothiazide [Lopressor Hct 50-25 mg Tab] 1 tab PO DAILY 10/04/22 [History] Omeprazole [PriLOSEC] 20 mg PO DAILY 10/04/22 [History] Losartan [Cozaar] 50 mg PO HS 30 Days #30 tab 10/06/22 [Rx] Losartan [Cozaar] 100 mg PO DAILY 30 Days #30 tab 10/06/22 [Rx] Follow up Appointment(s)/Referral(s): Barbara Yang MD [STAFF PHYSICIAN] - 1 Week (event monitor set up outpatient ) Brenda Iraheta MD [Primary Care Provider] - 1-2 days Activity/Diet/Wound Care/Special Instructions: Patient to follow up with cardiology services for about monitor placement outpatient Discharge Disposition: HOME SELF-CARE
--- NOTE | 2022-10-06 12:51 | P.PN ---
Subjective Progress Note Date: 10/06/22 This is Rolando Busby NP, I'm dictating on behalf of Dr. Matthew's H&P and A&P. Patient was interviewed and examined. Patient is pleasant 82-year-old female who presented to the hospital with complaints of chest pain, heart palpitations, and shortness of breath. Patient reports that she is feeling fine today. She is denying chest pain, shortness of breath, and heart palpitations at this time. There was concern over possible atrial fibrillation that was seen during EMS transport to the hospital. Patient has had no incidences of atrial fibrillation while in the hospital. An echocardiogram was completed, which demonstrates mild right atrial dilatation, with LVH and preserved EF. GENERAL: Well-appearing, well-nourished and in no acute distress. NECK: Supple without JVD or thyromegaly. LUNGS: Breath sounds clear to auscultation bilaterally. Respiration equal and unlabored. No wheezes, rales or rhonchi. HEART: Regular rate and rhythm without murmurs, rubs or gallops. S1 and S2 heard. EXTREMITIES: Normal range of motion, no edema. No clubbing or cyanosis. Peripheral pulses intact and strong. VITALS: Temp 97.9, pulse 71, respirations 16, blood pressure 147/69, O2 saturation 100% on room air TELEMETRY: Normal sinus rhythm LABS: White count 6.2, hemoglobin 12.5, platelets 238, sodium 142, potassium 4.1, B1 16.5, creatinine 0.8, calcium 8.9 IMPRESSION: 1. Possible paroxysmal atrial fibrillation, no EKG evidence yet 2. Hypertension, patient on hydrochlorothiazide and losartan PLAN: Blood pressure remains stable, patient may be discharged home. If blood pressure increases, increase losartan to 150 mg daily. Patient should have a 30 day event monitor placed as an outpatient with Dr. Yang. Objective - Vital Signs Vital signs: Vital Signs Temp 97.9 F 10/06/22 07:00 Pulse 71 10/06/22 07:00 Resp 16 10/06/22 07:00 BP 140/80 10/06/22 08:00 Pulse Ox 100 10/06/22 07:00 FiO2 Intake & Output 10/05/22 10/06/22 10/06/22 18:59 06:59 18:59 Intake Total 358 354 Balance 358 354 Intake: Oral 358 354 Other: Voiding Method Toilet # Voids 2 1 - Labs CBC & Chem 7: 10/05/22 06:19 10/05/22 06:19 Labs: Microbiology - Last 24 Hours (Table) 10/04/22 06:51 Urine Culture - Preliminary Urine,Voided
== END 2022-10-06 12:52 | disposition home or self-care (01) ==
LOC: EC 05:25 → 3SCARD 06:41 → 6NMEDSUR 10:38
PROVIDERS: ADMIT Internal Medicine; ATTEND Internal Medicine
DX: R07.9 Chest pain, unspecified (principal); R00.2 Palpitations; I10 Essential (primary) hypertension; M54.9 Dorsalgia, unspecified; F41.9 Anxiety disorder, unspecified; I44.7 Left bundle-branch block, unspecified; E87.6 Hypokalemia; Z79.899 Other long term (current) drug therapy; Z88.3 Allergy status to other anti-infective agents; Z88.5 Allergy status to narcotic agent
CPT/HCPCS: 96360; 99285; 36415; 94760; 93005; 93306; 80053 ×2; 83735; 84443; 84484; 85025 ×2; 85610; 85730; 81001; 87086; 87077; 87186; 71046; 93880; G0378 ×4

== ENCOUNTER → 2023-08-18 | Outpatient (CLI) | payer MEDICARE ==
--- NOTE | 2023-08-19 10:09 | MM ---
Reason for Exam: Screening (asymptomatic). Last mammogram was performed 1 year(s) and 2 month(s) ago. Patient History: Menarche at age 11. First Full-Term at age 20. Left ovary removed at age 33. Right ovary removed at age 33. Hysterectomy at age 33. Postmenopausal. Patient used Estrogen and Progesterone for 5 years. 03/15/2011, Benign Excisional Biopsy on the right side. 03/08/2011, High risk Core Biopsy on the right side. 06/10/2002, Benign Stereotactic Core Biopsy on the right side. 03/13/2001, Benign Stereotactic Core Biopsy on the right side. Paternal aunt had breast cancer, age 70. Maternal aunt had breast cancer, age 60. Risk Values: Arcelia 5 year model risk: 1.9%. NCI Lifetime model risk: 2.1%. Prior Study Comparison: 05/10/2020 Bilateral Screening Mammogram, [facility]. 06/11/2021 Bilateral Screening Mammogram, [facility]. 06/12/2022 Bilateral MG 3D screening mammo w/cad, [facility]. Tissue Density: The breasts are almost entirely fatty. Findings: Analyzed By CAD. Right breast: There is no suspicious group of microcalcifications or new suspicious mass. Benign-appearing calcifications right breast. Left breast: There is no suspicious group of microcalcifications or new suspicious mass. Benign-appearing calcifications left breast. Right breast: A biopsy clip there is present. There is no suspicious group of microcalcifications or new suspicious mass. Benign-appearing calcifications right breast. Left breast: There is no suspicious group of microcalcifications or new suspicious mass. Benign-appearing calcifications left breast. Overall Assessment: Benign, BI-RAD 2 Management: Screening Mammogram of both breasts in [address] [facility] will attempt to contact patient to return for supplemental views and ultrasound if indicated. Patient should continue monthly self-breast exams. A clinical breast exam by your physician is recommended on an annual basis. This exam should not preclude additional follow-up of suspicious palpable abnormalities. Note on Arcelia scores and lifetime risk: 1. A Arcelia score greater than 3% is considered moderate risk. If this is the case, consider specialist referral to assess eligibility for a risk reducing agent. 2. If overall lifetime risk for the development of breast cancer is 20% or higher, the patient may qualify for future screening with alternating mammogram and breast MRI. Electronically signed and approved by: Anshu Wadsworth, DO
== END | disposition home or self-care (01) ==
LOC: RADMAMWWP 15:07
PROVIDERS: ATTEND Internal Medicine
DX: Z12.31 Encounter for screening mammogram for malignant neoplasm of breast (principal); Z80.3 Family history of malignant neoplasm of breast; Z78.0 Asymptomatic menopausal state
CPT/HCPCS: 77063; 77067

== ENCOUNTER → 2024-08-18 | Outpatient (CLI) | payer MEDICARE ==
--- NOTE | 2024-08-18 15:55 | MM ---
Reason for Exam: Screening (asymptomatic). Last screening mammogram was performed 12 month(s) ago. Patient History: Menarche at age 11. First Full-Term at age 20. Left ovary removed at age 33. Right ovary removed at age 33. Hysterectomy at age 33. Postmenopausal. Patient used Estrogen and Progesterone for 5 years. 03/15/2011, Benign Excisional Biopsy on the right side. 03/08/2011, High risk Core Biopsy on the right side. 06/10/2002, Benign Stereotactic Core Biopsy on the right side. 03/13/2001, Benign Stereotactic Core Biopsy on the right side. Paternal aunt had breast cancer, age 70. Maternal aunt had breast cancer, age 60. Risk Values: Arcelia 5 year model risk: 1.7%. NCI Lifetime model risk: 1.7%. Prior Study Comparison: 06/11/2021 Bilateral Screening Mammogram, [facility]. 06/12/2022 Bilateral MG 3D screening mammo w/cad, [facility]. 08/18/2023 Bilateral MG 3D screening mammo w/cad, [facility]. Tissue Density: There are scattered areas of fibroglandular density. Findings: Analyzed By CAD. Excisional scar lateral right breast. A few scattered benign oil cyst calcifications are redemonstrated. There is no suspicious group of microcalcifications or new suspicious mass in either breast. Overall Assessment: Benign, BI-RAD 2 Management: Screening Mammogram of both breasts in 1 year. Patient should continue monthly self-breast exams. A clinical breast exam by your physician is recommended on an annual basis. This exam should not preclude additional follow-up of suspicious palpable abnormalities. Note on Arcelia scores and lifetime risk: 1. A Arcelia score greater than 3% is considered moderate risk. If this is the case, consider specialist referral to assess eligibility for a risk reducing agent. 2. If overall lifetime risk for the development of breast cancer is 20% or higher, the patient may qualify for future screening with alternating mammogram and breast MRI. [facility], , 08/18/2024 3:52 PM. Electronically signed and approved by: Orlando Varela M.D. Radiologist
== END | disposition home or self-care (01) ==
LOC: RADMAMWWP 13:19
PROVIDERS: ATTEND Internal Medicine
DX: Z12.31 Encounter for screening mammogram for malignant neoplasm of breast (principal); R92.323 Mammographic fibroglandular density, bilateral breasts; R92.1 Mammographic calcification found on diagnostic imaging of breast; Z78.0 Asymptomatic menopausal state; Z80.3 Family history of malignant neoplasm of breast
CPT/HCPCS: 77063; 77067